=== PATIENT | male | born 1970 | race Two or more races ===

== ENCOUNTER 2024-08-22 10:17 | Emergency (ER) | payer BC ==
[~2024-08-22] VITALS: Ht 193 cm; Wt 83.9 kg
[2024-08-22] MEDS ORDERED: HORIZANT300 MG (10:47)
[2024-08-22] MEDS ORDERED: CELEBREX200MG PO (10:48)
[2024-08-22] MEDS ORDERED: KETOROLAC TROMETHAMINE 60 MG VIAL IM STA (11:18)
[2024-08-22] MEDS ORDERED: ORPHENADRINE CITRATE 30 MG/ML AMPUL IM STA (11:19)
== END 2024-08-22 13:11 | disposition home or self-care (01) ==
LOC: ER 10:19
DX: M54.2 Cervicalgia (principal)